=== PATIENT | female | born 1970 | race African-American/Black ===

== ENCOUNTER 2021-03-18 09:19 | Observation (INO) | payer BC ==
[2021-03-18 09:49] LABS: Urine Blood 2+ (Negative); Urine Glucose Negative (Negative); Urine Protein 2+ (Negative); Urine Specific Gravity 1.015 (1.005-1.030)
[2021-03-18] MEDS ORDERED: MAGNES/ALUMIN/SIMET 30ML UCUP ONE (10:00)
[2021-03-18] MEDS ORDERED: LIDOCAINE VISCOUS 2% SOLN 15 ML UDC ONE (10:00)
[2021-03-18 10:06] LABS: Absolute Lymphocytes (CBC) 2.4 K/uL (0.7-4.9); Hematocrit 38.5 % (36.0-45.0); Lymphocytes % 23.4 % (15.3-44.8); MPV 8.8 fL (7.6-11.3); RBC Red Blood Cell Count 4.83 M/uL (3.86-4.86)
[2021-03-18 10:27] LABS: ALT/SGPT 31 U/L (12-78); AST/SGOT 16 U/L (15-37); Albumin 3.4 g/dL (3.4-5.0); Alkaline Phosphatase 76 U/L (45-117); BUN Blood Urea Nitrogen 18 mg/dL (7-18); Bicarbonate 27 mmol/L (21-32); Bilirubin Direct < 0.1 mg/dL (0-0.2); Bilirubin Total 0.2 mg/dL (0.2-1.0); Glucose Level 98 mg/dL (74-106); NT PRO-BNP 87 pg/mL (<125); Potassium 3.1 mmol/L (3.5-5.1); Protein, Total 7.5 g/dL (6.4-8.2); Sodium Level 139 mmol/L (136-145); Troponin (Emerg Dept Use Only) < 0.02 ng/mL (0.0-0.045)
--- NOTE | 2021-03-18 10:44 | RAD REPORT ---
EXAM DESCRIPTION: RAD - Chest Single View - 03/18/2021 10:31 am CLINICAL HISTORY: CHEST PAIN COMPARISON: Chest Single View dated 03/26/2017 FINDINGS: Lines: None. Lungs: No evidence of edema or pneumonia. Pleural: No significant pleural effusions or pneumothorax. Cardiac: The heart size is within normal limits. Bones: No acute fractures. Other: IMPRESSION: No acute cardiopulmonary disease.
--- NOTE | 2021-03-18 11:13 | RAD REPORT ---
EXAM DESCRIPTION: CT - Chest For Pe Angio - 03/18/2021 10:58 am CLINICAL HISTORY: CHEST PAIN COMPARISON: No comparisons FINDINGS: Chest Wall: No suspicious thyroid nodules or pathologic lymphadenopathy. Lungs: No acute abnormality. Pleura: No significant effusions or pneumothorax. Mediastinum/lakeisha: No pathologic lymphadenopathy. Pulmonary arteries/Aorta: No filling defect identified. No aortic aneurysm. Heart: No significant pericardial effusion. Normal heart size. Upper abdomen: No acute abnormality. Bones: No acute abnormality. Multilevel degenerative changes are present in the spine. All CT scans are performed using dose optimization technique as appropriate and may include automated exposure control or mA/KV adjustment according to patient size. IMPRESSION: Negative for pulmonary embolism. No acute findings within the chest.
--- NOTE | 2021-03-18 11:15 | RAD REPORT ---
EXAM DESCRIPTION: US - Abdomen Exam Limited - 03/18/2021 10:14 am CLINICAL HISTORY: PAIN COMPARISON: Abdomen Pelvis W Contrast dated 03/26/2017 FINDINGS: The gallbladder demonstrates no gallstones. No pericholecystic fluid or gallbladder wall t hickening. The common bile duct is normal measuring 3. The liver demonstrates no findings of intrahepatic biliary dilatation. IMPRESSION: Unremarkable examination.
--- NOTE | 2021-03-18 11:40 | ER ---
Nurse's Notes [facility] Name: Jeny Gaitan Age: 51 yrs Sex: Female : 1970 Arrival Date: 03/18/2021 Time: 09:20 Bed 25 Private MD: Diagnosis: Chest pain, unspecified Presentation: 03/18 09:30 Chief complaint: Patient states: upper chest heaviness x 1 week, nausea and throat sv burning this morning. Pt took an ASA last night. Coronavirus screen: Vaccine status: Patient reports receiving the 2nd dose of the covid vaccine. Patient reports receiving the 1st dose of the Covid vaccine. Client denies travel out of the [place] in the last 14 days. Ebola Screen: No symptoms or risks identified at this time. Risk Assessment: Do you want to hurt yourself or someone else? Patient reports no desire to harm self or others. Onset of symptoms was February 2021. 09:30 Method Of Arrival: Wheelchair sv 09:30 Acuity: VETO 3 sv 09:59 Initial Sepsis Screen: Does the patient meet any 2 criteria? No. Patient's initial es2 sepsis screen is negative. Does the patient have a suspected source of infection? No. Patient's initial sepsis screen is negative. Historical: - Allergies: 09:32 No Known Allergies; sv - PMHx: 09:32 Hypertension; sv - PSHx: 09:32 hysterectomy; sv - Immunization history:: Adult Immunizations up to date. - Social history:: Smoking status: Patient denies any tobacco usage or history of. - Family history:: not pertinent. - Hospitalizations: : No recent hospitalization is reported. Screenin:59 Abuse screen: Denies threats or abuse. Denies injuries from another. Nutritional es2 screening: No deficits noted. Tuberculosis screening: No symptoms or risk factors identified. Fall Risk IV access (20 points). Gait- Normal/Bed Rest/Wheelchair (0 pts). Assessment: 09:57 Reassessment: Patient is alert, oriented x 3, equal unlabored respirations, skin es2 warm/dry/pink. Pt in for chest pain and sometimes arm numbness that started last week. General: Appears in no apparent distress. well developed, well nourished, Behavior is calm, cooperative, appropriate for age. Pain: Complains of pain in chest Pain radiates to left arm Pain began 2-3 days ago. Neuro: Level of Consciousness is awake, alert, obeys commands, Oriented to person, place, time, situation, Appropriate for age Gait is steady, Speech is normal. Cardiovascular: Reports chest pain. Respiratory: Airway is patent Respiratory effort is even, unlabored, Respiratory pattern is regular, symmetrical. GI: No signs and/or symptoms were reported involving the gastrointestinal system. : No signs and/or symptoms were reported regarding the genitourinary system. EENT: No signs and/or symptoms were reported regarding the EENT system. Derm: No signs and/or symptoms reported regarding the dermatologic system. Musculoskeletal: No signs and/or symptoms reported regarding the musculoskeletal system. Vital Signs: 09:30 Weight 82.1 kg; Height 5 ft. 4 in. (162.56 cm); Pain 7/10; sv 09:59 BP 148 / 82; Pulse 83; Resp 20; Temp 98.4; Pulse Ox 100% on R/A; es2 11:36 BP 143 / 81; Pulse 69; Resp 17; Pulse Ox 97% on R/A; es2 09:30 Body Mass Index 31.07 (82.10 kg, 162.56 cm) sv ED Course: 09:20 Patient arrived in ED. ds1 09:23 Jw Allen MD is Attending Physician. rn 09:23 Amelia Ramirez, SANDY is Primary Nurse. es2 09:31 Patient has correct armband on for positive identification. Placed in gown. Bed in low mh5 position. Call light in reach. Side rails up X 1. Warm blanket given. Pillow given. general technician on. Pulse ox on. NIBP on. 09:32 Triage completed. sv 09:32 EKG done, by ED staff, reviewed by Jw Allen MD. mh5 09:51 Urine collected: clean catch specimen, clear. mh5 09:56 D-Dimer Sent. es2 09:56 Troponin (emerg Dept Use Only) Sent. es2 09:56 PT-INR Sent. es2 09:56 NT PRO-BNP Sent. es2 09:56 LFT's Sent. es2 09:56 CBC with Diff Sent. es2 09:56 Basic Metabolic Panel Sent. es2 09:57 No provider procedures requiring assistance completed. Inserted saline lock: 22 gauge es2 in right antecubital area, using aseptic technique. Blood collected. Patient maintains SpO2 saturation greater than 95% on room air. 09:59 Arm band placed on. es2 10:14 US Abdomen Limited In Process Unspecified. EDMS 10:30 XRAY Chest (1 view) In Process Unspecified. EDMS 10:59 CT Chest For PE Angio In Process Unspecified. EDMS 11:38 Ramsey Baker MD is Hospitalizing Provider. rn Administered Medications: 09:49 Drug: GI Cocktail without - (Maalox Suspension 30 ml, Lidocaine Liquid 2 % 15 es2 ml) Route: PO; 11:36 Follow up: Response: No adverse reaction es2 11:49 Drug: Aspirin Chewable Tablet 324 mg Route: PO; es2 11:50 Follow up: Response: No adverse reaction es2 Outcome: 11:39 Decision to Hospitalize by Provider. rn 17:05 Patient left the ED. es2 Signatures: Dispatcher [employer] Maryann Calixto RN RN sv Sanford, Demi ds1 Jw Allen MD MD rn Martinez, Maria Amelia Rodriguez RN RN es2
--- NOTE | 2021-03-18 11:40 | EDPHYS ---
Physician Documentation [facility] Name: Jeny Gaitan Age: 51 yrs Sex: Female : 1970 Arrival Date: 03/18/2021 Time: 09:20 Bed 25 Private MD: ED Physician Jw Allen HPI: 03/18 11:33 This 51 yrs old Black Female presents to ER via Wheelchair with complaints of Chest rn Pain. 11:33 The patient or guardian reports chest pain that is located primarily in the substernal rn area. Onset: 1 week(s) ago. The pain radiates to the left arm. Associated signs and symptoms: Pertinent negatives: abdominal pain, headache, lower extremity swelling, lightheadedness, near syncope, shortness of breath, syncope, vomiting. The chest pain is described as aching, burning. Duration: The patient or guardian reports multiple episodes, that are intermittent. Modifying factors: The symptoms are alleviated by nothing. the symptoms are aggravated by nothing. Severity of pain: At its worst the pain was moderate in the emergency department the pain has improved. The patient has not experienced similar symptoms in the past. The patient has not recently seen a physician. Patient reports intermittent chest pain that lasts 20 to 30 minutes, over the last week, radiates to left arm, never had cardiac eval, worse with exertion. Feels achy and burning and travels up to neck. Denies abdominal pain. States feels different from her normal acid reflux. Historical: - Allergies: 09:32 No Known Allergies; sv - PMHx: 09:32 Hypertension; sv - PSHx: 09:32 hysterectomy; sv - Immunization history:: Adult Immunizations up to date. - Social history:: Smoking status: Patient denies any tobacco usage or history of. - Family history:: not pertinent. - Hospitalizations: : No recent hospitalization is reported. ROS: 11:33 Constitutional: Negative for fever, chills, and weight loss, Eyes: Negative for injury, rn pain, redness, and discharge, Neck: Negative for injury, pain, and swelling, Cardiovascular: Negative for palpitations, and edema, Respiratory: Negative for shortness of breath, cough, wheezing, and pleuritic chest pain, Abdomen/GI: Negative for abdominal pain, nausea, vomiting, diarrhea, and constipation, Back: Negative for injury and pain, : Negative for injury, bleeding, discharge, and swelling, MS/Extremity: Negative for injury and deformity, Skin: Negative for injury, rash, and discoloration, Neuro: Negative for headache, weakness, numbness, tingling, and seizure. Exam: 11:33 Constitutional: This is a well developed, well nourished patient who is awake, alert, rn and in no acute distress. Head/Face: Normocephalic, atraumatic. Eyes: Periorbital areas with no swelling, redness, or edema. Cardiovascular: Regular rate and rhythm. No pulse deficits. Respiratory: No increased work of breathing, no retractions or nasal flaring. Abdomen/GI: Soft, non-tender Skin: Warm, dry with normal turgor. Normal color with no rashes, no lesions, and no evidence of cellulitis. MS/ Extremity: Pulses equal, no cyanosis. Neurovascular intact. Full, normal range of motion. Equal circumference. Neuro: Awake and alert, GCS 15, oriented to person, place, time, and situation. Cranial nerves II-XII grossly intact. Motor strength 5/5 in all extremities. Sensory grossly intact. 11:33 ECG was reviewed by the Attending Physician. rn Vital Signs: 09:30 Weight 82.1 kg; Height 5 ft. 4 in. (162.56 cm); Pain 7/10; sv 09:59 BP 148 / 82; Pulse 83; Resp 20; Temp 98.4; Pulse Ox 100% on R/A; es2 11:36 BP 143 / 81; Pulse 69; Resp 17; Pulse Ox 97% on R/A; es2 09:30 Body Mass Index 31.07 (82.10 kg, 162.56 cm) sv MDM: 09:23 Patient medically screened. rn 11:33 Differential diagnosis: acute myocardial infarction, acute pericarditis, anxiety, rn coronary artery disease chest wall pain, costochondritis, esophagitis, gastritis, gastroesophageal reflux disease (GERD), pericarditis, pleurisy, pneumothorax, pulmonary embolus, stable angina. The patient was given aspirin in the Emergency Department. 11:36 HEART Score: History: Moderately Suspicious (1), ECG: Non specific repolarization rn disturbance / LBTB / PM (1), Age: > 45 and < 65 years (1), Risk Factors: 1 or 2 risk factors (1), Troponin: < or = 1 x Normal Limit (0), Total Score = 4. Data reviewed: vital signs, nurses notes, lab test result(s), EKG, radiologic studies, CT scan, plain films, and as a result, I will admit patient. Data interpreted: radiation monitor: rate is 83 beats/min, rhythm is normal sinus rhythm, regular, with no ectopy, Interpretation: normal rate, normal rhythm, Pulse oximetry: on room air is 100 %. Interpretation: normal. Counseling: I had a detailed discussion with the patient and/or guardian regarding: the historical points, exam findings, and any diagnostic results supporting the discharge/admit diagnosis, lab results, radiology results, the need for further work-up and treatment in the hospital. Response to treatment: the patient's symptoms have mildly improved after treatment, and as a result, I will admit patient. Admission orders: after a detailed discussion of the patient's condition and case, the admit orders are written by me. ED course: Mild improvement with GI cocktail but still having pain. Troponin negative. ECG shows nonspecific T wave inversions in the inferior and lateral leads. Will admit for cardiac eval this patient has never had a cardiac stress test or evaluation and no clear etiology of chest pain at this time.. 10 09:33 Order name: Basic Metabolic Panel; Complete Time: 10:49 rn 03/18 09:33 Order name: CBC with Diff; Complete Time: 10:17 rn 03/18 09:33 Order name: LFT's; Complete Time: 10:49 rn 03/18 09:33 Order name: NT PRO-BNP; Complete Time: 10:49 rn 03/18 09:33 Order name: PT-INR; Complete Time: 10:49 rn 03/18 09:33 Order name: Troponin (emerg Dept Use Only); Complete Time: 10:49 rn 03/18 09:33 Order name: D-Dimer; Complete Time: 10:49 rn 03/18 09:48 Order name: Urine Dipstick-Ancillary; Complete Time: 10:17 EDMS 03/18 13:10 Order name: Urinalysis EDMS 03/18 13:44 Order name: Urine Microscopic Only EDMS 03/18 13:57 Order name: COVID-19 : Document "Date of Symptom Onset" if Symptomatic. sv 03/18 14:48 Order name: CORONAVIRUS EDNJ 03/18 15:42 Order name: SARS-COV-2 RT PCR EDMS 03/18 16:21 Order name: Hemoglobin A1c EDNJ 03/18 09:33 Order name: XRAY Chest (1 view); Complete Time: 10:49 rn 03/18 09:33 Order name: EKG; Complete Time: 09:33 rn 03/18 09:33 Order name: Cardiac monitoring; Complete Time: 09:49 rn 03/18 09:33 Order name: EKG - Nurse/Tech; Complete Time: 09:49 rn 03/18 09:33 Order name: IV Saline Lock; Complete Time: 09:56 rn 03/18 09:33 Order name: Labs collected and sent; Complete Time: 09:56 rn 03/18 09:33 Order name: O2 Per Protocol; Complete Time: 09:50 rn 03/18 09:33 Order name: O2 Sat Monitoring; Complete Time: 09:50 rn 03/18 09:33 Order name: US Abdomen Limited; Complete Time: 11:19 rn 03/18 10:18 Order name: CT Chest For PE Angio; Complete Time: 11:19 rn 03/18 16:34 Order name: Troponin I EDNJ 03/18 16:34 Order name: Lipid Profile EDNJ 03/18 16:34 Order name: T4 Free EDNJ 03/18 16:34 Order name: Thyroid Stimulating Hormone EDNJ EC:33 Rate is 76 beats/min. Rhythm is regular. QRS [place] is Normal. [place] interval is normal. QRS rn interval is normal. QT interval is normal. No Q waves. T waves are Inverted in leads II, III, aVF, V3, V4, V5, V6. No ST changes noted. Clinical impression: NSR w/ Non-specific ST/T Changes. Interpreted by me. Reviewed by me. Administered Medications: 09:49 Drug: GI Cocktail without - (Maalox Suspension 30 ml, Lidocaine Liquid 2 % 15 es2 ml) Route: PO; 11:36 Follow up: Response: No adverse reaction es2 11:49 Drug: Aspirin Chewable Tablet 324 mg Route: PO; es2 11:50 Follow up: Response: No adverse reaction es2 Disposition Summary: 03/18/21 11:39 Hospitalization Ordered Hospitalization Status: Observation rn Provider: Baker, Mohammad rn Condition: Stable rn Problem: new rn Symptoms: have improved rn Bed/Room Type: Standard rn Location: Telemetry/MedSurg (observation)(03/18/21 15:54) bd Room Assignment: 231(03/18/21 15:54) bd Diagnosis - Chest pain, unspecified rn Forms: - Medication Reconciliation Form rn - SBAR form rn Signatures: Dispatcher [employer] EDMS Beba Frazier Stephanie RN Jw Max MD MD rn Smith, Elizabeth, RN RN es2 Corrections: (The following items were deleted from the chart) 12:37 11:39 Telemetry/MedSurg (observation) rn bd 12:37 11:39 rn bd 15:54 12:37 [facility] ER HOLD bd bd :54 12:37 ERHOLD- bd bd
[2021-03-18] MEDS ORDERED: LABETALOL 20 MG/4ML SYRINGE IV PRN (11:48)
[2021-03-18] MEDS ORDERED: HYDROCODONE/APAP 5/325 MG TAB PO PRN (11:56)
[2021-03-18] MEDS ORDERED: ONDANSETRON 4 MG/2 ML VIAL IV PRN (12:00)
[2021-03-18] MEDS ORDERED: ACETAMINOPHEN 500 MG TAB PO PRN (12:00)
--- NOTE | 2021-03-18 12:03 | P.HP ---
Certification for Inpatient Patient admitted to: Inpatient With expected LOS: >2 Midnights Patient will require the following post-hospital care: None Practitioner: I am a practitioner with admitting privileges, knowledge of patient current condition, hospital course, and medical plan of care. Services: Services provided to patient in accordance with Admission requirements found in Title 42 Section 412.3 of the Code of Federal Regulations Patient History Date of Service: 03/18/21 Reason for admission: Chest pain History of Present Illness: Patient is a 51-year-old female with a past medical history significant for hypertension who presents with complaint of chest pain that has been ongoing for the past 1 week. Patient reported that chest pain is located in the substernal chest area. Patient indicated that chest pain radiates to her left arm, neck and left shoulder. Patient rated pain as 10/10 in severity and described pain as burning in quality. Patient reports associated signs and symptoms of left arm numbness\tingling, diaphoresis, fatigue, nausea and headache. Patient denies any other signs or symptoms. Symptoms are aggravated or relieved by nothing. Patient decided to present to the hospital due to worsening symptoms Allergies No Known Allergies Allergy (Verified 03/26/17 20:18) Home Medications: Irbesartan 75 mg PO DAILY 03/18/21 hydroCHLOROthiazide [Hydrochlorothiazide] 12.5 mg PO DAILY 03/18/21 - Past Medical/Surgical History Diabetic: No -: Hypertension - Family History Father -: Heart disease, Diabetes Mother -: Hypertension - Social History Smoking Status: Former smoker Alcohol use: No CD- Drugs: No Caffeine use: Yes Place of Residence: Home Review of Systems General: Malaise, As per HPI Eyes: Unremarkable ENT: Unremarkable Respiratory: Unremarkable Cardiovascular: Chest Pain Gastrointestinal: Nausea Genitourinary: Unremarkable Musculoskeletal: Neck Pain, Arm Pain, Back Pain Integumentary: Unremarkable Neurological: Numbness Lymphatics: Unremarkable Physical Examination - Physical Exam General: Alert, In no apparent distress, Oriented x3 HEENT: Atraumatic, PERRLA, Mucous membr. moist/pink, EOMI, Sclerae nonicteric Neck: Supple, 2+ carotid pulse no bruit, No LAD, Without JVD or thyroid abnormality Respiratory: Clear to auscultation bilaterally, Normal air movement Cardiovascular: Regular rate/rhythm, Normal S1 S2 Capillary refill: <2 Seconds Gastrointestinal: Normal bowel sounds, No tenderness Musculoskeletal: No tenderness Integumentary: No rashes Neurological: Normal gait, Normal speech, Normal tone, Normal affect Lymphatics: No axilla or inguinal lymphadenopathy External genitalia: Deferred Rectal: Deferred - Studies Laboratory Data (last 24 hrs) 03/18/21 09:55: PT 11.5, INR 1.00 03/18/21 09:55: WBC 10.30, Hgb 12.8, Hct 38.5, Plt Count 260 03/18/21 09:55: Sodium 139, Potassium 3.1 L, BUN 18, Creatinine 0.97, Glucose 98, Total Bilirubin 0.2, AST 16, ALT 31, Alkaline Phosphatase 76 Assessment and Plan - Plan --Chest pain of unclear etiology. Will trend troponins. Sign Writer Hand consulted. Echocardiogram pending. Telemetry to monitor for any significant arrhythmia. Await further recommendation from drum operator. --Hypertension. Poorly controlled. Continue home medications and labetalol as needed --UTI POA. Patient placed on antibiotics. --Hypokalemia. Replete as needed. --Class I obesity. Likely secondary to excess calories intake. Patient counseled on diet and exercise therapy. --Elevated D-dimer. CTA angiogram PE chest protocol negative for PE. Continue supportive care. --Hyperlipidemia. Patient placed on statin. --DVT prophylaxis with Lovenox subQ I have had discussion about advanced directives with the patient during this hospital admission. Addressed code status and goals of care. Spent more than 30 minutes. Case discussed withpatient and nurse. The following document was completed using voice recognition software. This can produce stereo equipment installer errors that can at times significantly distort words and phrases. Please interpret any aspect of the note that is nonsensical in light of this fact. Discharge Plan: Home Plan to discharge in: 48 Hours - Advance Directives Does patient have a Living Will: No Does patient have a Durable POA for Healthcare: No - Code Status/Comfort Care Code Status Assessed: Yes Code Status: Full Code Physician Review: Patient Assessed, Agree with Above Assessment and Plan Critical Care: No
[2021-03-18 12:14] VITALS: BMI 31.0
[2021-03-18] MEDS ORDERED: ASPIRIN 81 MG CHEWABLE TABLET ONE (12:14)
[2021-03-18 13:05] LABS: Urine Appearance CLEAR (Clear); Urine Bilirubin NEGATIVE (Negative); Urine Blood 3+ (Negative); Urine Color YELLOW (Yellow); Urine Glucose NEGATIVE (Negative); Urine Protein 2+ (Negative); Urine Specific Gravity >=1.030 (1.005-1.030); Urine Urobilinogen 0.2 mg/dL (0.2-1.0)
[2021-03-18 13:10] LABS: Urine Microscopic Reflex ORDER UMIC
[2021-03-18 13:43] LABS: Urine Bacteria <20 /HPF (<20); Urine RBC 20-50 /HPF (NONE SEEN)
[2021-03-18] MEDS ORDERED: INFLUENZA VACCINE (for 6+ mo) 0.5 ML DOSE IMVAC ONE (15:00)
[2021-03-18 16:33] LABS: HDL Cholesterol 51 mg/dL (40-60); LDL Cholesterol, Calculated 142 (<130); Troponin I < 0.02 ng/mL (0.0-0.045)
--- NOTE | 2021-03-18 18:06 | EKG ---
Test Date: 2021-03-18 Test Time: 09:41:05 Urban Design Consultant: DIONE MEASUREMENT RESULTS: Intervals: Rate: 76 NE: 166 QRSD: 76 QT: 388 QTc: 436 Jamul: P: 37 NE: 166 QRS: -4 T: -42 INTERPRETIVE STATEMENTS: Normal sinus rhythm Moderate voltage criteria for LVH, may be normal variant Nonspecific T wave abnormality Abnormal ECG Compared to ECG 03/26/2017 14:22:53 Prolonged QT interval no longer present T-wave abnormality still present Electronically Signed On 03-18-21 18:05:29 CDT by Darwin Ramsay
[2021-03-18] MEDS ORDERED: POTASSIUM 25 MEQ EFFERV TAB PO ONE ×2 (19:00→20:00)
[2021-03-18] MEDS ORDERED: SODIUM CHLORIDE 0.9% 10ML INJ IV PRN (22:27)
[2021-03-18] MEDS ORDERED: CEFTRIAXONE 1 GM/NS 50 ML 1 GM/50 ML BAG IV SCH (23:00)
--- NOTE | 2021-03-18 23:54 | CON ---
Date of Consultation: 03/18/[address] Murguia on 03/18/2021. Reason For Consultation: Chest pain. History Of Present Illness: Ms. Gaitan is a 51-year-old black woman without any significant cardiac h istory. She does have a history of hypertension. She came in with a few days of substernal chest pr essure, left arm numbness, occasionally left neck pain, pain was last hours on and with some nausea, but no vomiting, diaphoresis, or shortness of breath. She denies any PND, orthopnea, palpitations, o r syncope. Her symptoms are not exertional and not related to food, time of the day, or body positio n. She denied any excessive stress lately. Past Medical History: Includes hypertension. Allergies: NONE. Review of Systems: Negative. Social History: Negative. Family History: Noncontributory. Physical Examination: Vital Signs: Stable. She was afebrile. HEENT: Negative. Neck: Supple. No bruit. Chest: Clear to auscultation and percussion. Cardiac: Revealed a regular rhythm and rate. No murmurs, gallops, or rubs. Abdomen: Benign. Extremities: Revealed no clubbing, cyanosis, or edema. Diagnostic Data: D-dimer was elevated at 618. Potassium was 3.1. She has dyslipidemia that is sign ificant. She may have UTI. Chest x-ray was normal. Her EKG showed left ventricular hypertrophy. A bdominal ultrasound was normal. She had a CTA that was negative for pulmonary embolus. Impression And Plan: 1.Hypertension. 2.Obesity. 3.Atypical chest pain. I think she needs to have an echocardiogram and a stress test before she goes home and I will make ar rangements for that for tomorrow. She does have hypokalemia that needs to be addressed. She had wha t seems to be a urinary tract infection. She has significant dyslipidemia and she should be on stati n when she goes home. We will see what her stress test and echo show before making final decisions. TASHA/RINKU Voice ID: [id number] Report ID: [id number]
[2021-03-19] MEDS ORDERED: CEFTRIAXONE 1000 MG/VIAL ONE (01:25)
[2021-03-19] MEDS ORDERED: NA CHLORIDE 0.9% 100 ML ONE (01:25)
[2021-03-19 06:12] LABS: Absolute Lymphocytes (CBC) 2.5 K/uL (0.7-4.9); Basophils % 0.6 % (0-1.3); Hematocrit 35.1 % (36.0-45.0); Lymphocytes % 26.5 % (15.3-44.8); MPV 9.1 fL (7.6-11.3); RBC Red Blood Cell Count 4.34 M/uL (3.86-4.86)
[2021-03-19 06:25] LABS: Magnesium 2.1 mg/dL (1.8-2.4); Phosphorus 3.4 mg/dL (2.5-4.9); Potassium 3.5 mmol/L (3.5-5.1)
[2021-03-19] MEDS ORDERED: REGADENOSON 0.4 MG/5 ML SYR IV ONE (07:25)
--- NOTE | 2021-03-19 08:02 | ECHO ---
HEIGHT: 5 ft 4 in WEIGHT: 181 lb 0 oz DATE OF STUDY: 03/18/[address]: Sandeep Daniel 2-DIMENSIONAL: YES M.MODE: YES DOPPLER: YES COLOR FLOW: YES TDS: NO PORTABLE: NO DEFINITY: NO BUBBLE STUDY: NO DIAGNOSIS: CHEST PAIN CARDIAC HISTORY: CATHERIZATION: NO SURGERY: NO PROSTHETIC VALVE: NO PACEMAKER: NO MEASUREMENTS (cm) DIASTOLIC (NORMALS) SYSTOLIC (NORMALS) IVSd 1.1 (0.6-1.2) LA Diam 2.9 (1.9-4.0) LVEF 66% LVIDd 3.2 (3.5-5.7) LVIDs 2.1 (2.0-3.5) %FS 35% LVPWd 1.1 (0.6-1.2) Ao Diam 2.1 (2.0-3.7) 2 DIMENSIONAL ASSESSMENT: RIGHT ATRIUM: NORMAL LEFT ATRIUM: NORMAL RIGHT VENTRICLE: NORMAL LEFT VENTRICLE: NORMAL TRICUSPID VALVE: NORMAL MITRAL VALVE: NORMAL PULMONIC VALVE: NORMAL AORTIC VALVE: NORMAL PERICARDIAL EFFUSION: NONE AORTIC ROOT: NORMAL LEFT VENTRICULAR WALL MOTION: NORMAL DOPPLER/COLOR FLOW: NORMAL COMMENTS: NORMAL 2D ECHOCARDIOGRAM WITH DOPPLER. NO WALL MOTION ABNORMALITY. NO EFFUSION. TECHNOLOGIST: Chavo NEELY
[2021-03-19] MEDS ORDERED: ENALAPRIL 10 MG TAB PO SCH (09:00)
[2021-03-19] MEDS ORDERED: ASPIRIN 81 MG CHEWABLE TABLET PO SCH (09:00)
[2021-03-19] MEDS ORDERED: ENOXAPARIN 40 MG/0.4 ML SQ SCH (09:00)
[2021-03-19] MEDS ORDERED: IRBESARTAN 150 MG TAB PO SCH (09:00)
[2021-03-19] MEDS ORDERED: PANTOPRAZOLE 40 MG INJ IVP SCH (09:00)
[2021-03-19] MEDS ORDERED: hydroCHLOROthiazide 12.5 MG CAP PO SCH (09:00)
[2021-03-19] MEDS ORDERED: POTASSIUM 25 MEQ EFFERV TAB PO SCH (09:00)
[2021-03-19 09:19] VITALS: BP 121/71; TEMP 97.3
--- NOTE | 2021-03-19 12:27 | RAD REPORT ---
EXAM DESCRIPTION: NM - Rest Stress Cardiac Imaging - 03/19/2021 12:18 pm CLINICAL HISTORY: Chest pain COMPARISON: None. TECHNIQUE: The patient was administered 10.6 mCi of Tc 99m Sestamibi prior to resting SPECT imaging of the heart. The patient was then administered 30.1 mCi of Tc 99m Sestamibi following exercise or ph armacologic stress. Multiplanar SPECT images were reviewed. FINDINGS: The end diastolic volume is 70 ml, the end systolic volume is 27 ml, and the ejection frac tion is 61 %. Physiologic distribution of the radiopharmaceutical through the myocardium is noted. No stress induce d ischemic defect is seen to suggest stress induced ischemia. No fixed defect is seen to suggest hibe rnating myocardium or scarred myocardium. IMPRESSION: No stress induced ischemia or other suspicious findings. Ventricular volumes and ejection fraction normal range.
[2021-03-19 13:59] VITALS: O2SAT 99
--- NOTE | 2021-03-19 14:38 | P.DS ---
Admission Date: 03/18/21 Discharge Date: 03/19/21 Disposition: ROUTINE DISCHARGE Discharge Condition: FAIR Reason for Admission: Chest pain Consultations: Cardiology-Dr. Ramsay - Problems (1) Chest pain Current Visit: Yes Status: Acute (2) Hypertension Current Visit: No Status: Acute (3) UTI (urinary tract infection) Current Visit: Yes Status: Acute (4) Hyperlipidemia Current Visit: Yes Status: Acute Brief History of Present Illness: 51-year-old female with a past medical history significant for hypertension presented with a complaint of chest pain that has been ongoing for the past 1 week. Patient reported that chest pain is located in the substernal chest area. Patient indicated that chest pain radiates to her left arm, neck and left shoulder. She rated pain as 10/10 in severity and described pain as burning in quality. Patient reports associated signs and symptoms of left arm numbness\tingling, diaphoresis, fatigue, nausea and headache. Initial troponin negative. EKG demonstrated LVH and nonspecific T-wave abnormalitie. Patient placed under observation for ACS rule out. Hospital Course: Troponin trended negative. Patient seen in consultation by cardiology-Dr. Ramsay who recommended echocardiogram and stress test. Nuclear stress test came back negative. Echocardiogram shows no wall motion abnormality and normal EF. ACS has been ruled out. Patient noted to have hyperlipidemia. She is placed on aspirin and Lipitor. Her blood pressure was normal with her home antihypertensives. UA suggested UTI. Patient was given a dose of IV Rocephin. Patient is deemed stable for discharge. Vital Signs/Physical Exam: Temp Pulse Resp BP Pulse Ox 97.3 F 73 17 121/71 99 03/19/21 08:00 03/19/21 10:03/19/21 08:00 03/19/21 10:03/19/21 08:00 General: Alert, In no apparent distress, Oriented x3 HEENT: Mucous membr. moist/pink Neck: JVD not distended Respiratory: Clear to auscultation bilaterally, Normal air movement Cardiovascular: No edema, Regular rate/rhythm, Normal S1 S2, No murmurs Gastrointestinal: Soft and benign, Non-distended, No tenderness Musculoskeletal: No swelling Integumentary: No rashes Neurological: Normal strength at 5/5 x4 extr Laboratory Data at Discharge: WBC 9.50 K/uL (4.3-10.9) 03/19/21 05:37 Hgb 11.4 g/dL (12.0-15.0) L 03/19/21 05:37 Hct 35.1 % (36.0-45.0) L 03/19/21 05:37 Plt Count 231 K/uL (152-406) 03/19/21 05:37 PT 11.5 SECONDS (9.5-12.5) 03/18/21 09:55 INR 1.00 03/18/21 09:55 Sodium 141 mmol/L (136-145) 03/19/21 05:37 Potassium 3.5 mmol/L (3.5-5.1) 03/19/21 05:37 BUN 19 mg/dL (7-18) H 03/19/21 05:37 Creatinine 1.01 mg/dL (0.55-1.3) 03/19/21 05:37 Glucose 109 mg/dL (74-106) H 03/19/21 05:37 Phosphorus 3.4 mg/dL (2.5-4.9) 03/19/21 05:37 Magnesium 2.1 mg/dL (1.8-2.4) 03/19/21 05:37 Total Bilirubin 0.2 mg/dL (0.2-1.0) 03/18/21 09:55 AST 16 U/L (15-37) 03/18/21 09:55 ALT 31 U/L (12-78) 03/18/21 09:55 Alkaline Phosphatase 76 U/L (45-117) 03/18/21 09:55 Troponin I < 0.02 ng/mL (0.0-0.045) 03/19/21 05:37 Triglycerides 164 mg/dL (<150) H 03/18/21 15:42 Cholesterol 226 mg/dL (<200) H 03/18/21 15:42 HDL Cholesterol 51 mg/dL (40-60) 03/18/21 15:42 Cholesterol/HDL Ratio 4.43 03/18/21 15:42 Home Medications: Irbesartan 75 mg PO DAILY 03/18/21 hydroCHLOROthiazide [Hydrochlorothiazide] 12.5 mg PO DAILY 03/18/21 Aspirin [Aspirin EC] 81 mg PO DAILY #30 tablet.dr 03/19/21 Atorvastatin Calcium [Lipitor] 40 mg PO BEDTIME #30 tab 03/19/21 Pantoprazole [Protonix Tab] 40 mg PO DAILY #30 tab 03/19/21 New Medications: Aspirin [Aspirin EC] 81 mg PO DAILY #30 tablet. Atorvastatin Calcium [Lipitor] 40 mg PO BEDTIME #30 tab Pantoprazole [Protonix Tab] 40 mg PO DAILY #30 tab Diet: AHA Activity: Ad david Followup: Gaetano Rosenbaum MD [Primary Care Provider] -
[2021-03-19] MEDS ORDERED: INFLUENZA VACCINE (for 6+ mo) 0.5 ML DOSE IMVAC ONE (15:00)
[2021-03-19] MEDS ORDERED: ATORVASTATIN 40 MG TAB PO SCH (21:00)
--- NOTE | 2021-03-20 08:19 | TREADPHA ---
DX: CHEST PAIN Date of Study: 03/19/2021 Ht: 5' 4 " Wt: 181 lb 0 oz Consulting Physician: DORA MEDICATIONS: ASPIRIN, LIPITOR, VASOTEC, LOVENOX, NORCO HISTORY: PATIENT IS A 51 YEAR OLD FEMALE WITH COMPLAINTS OF CHEST PAIN. HISTORY OF NO DRINKING, NO SMOKING, HYPERTENSION PHYSICIAL EXAMINATION: RESTING B.P.: 118/80 RESTING H.R.: 74 RESTING EKG: NORMAL, NON SPECIFIC T WAVE PROTOCOL: PHARMACOLOIGIC EXERCISE TIME: 3:30 B.P. AT PEAK STRESS: 135/78 IMPRESSION: LEXISCAN INJECTED FOLLOWED BY CARDIOLITE INJECTED - SEE NUCLEAR MEDICINE REPORT. NO CHEST PAIN, SUPRAVENTRICULAR TACHYCARDIA, VENTRICULAR TACHYCARDIA, PREMATURE VENTRICULAR COMPLEXES, PREMATURE ARTIAL COMPLEXES.
--- NOTE | 2021-03-21 16:48 | PN ---
Ms. Gaitan was admitted on 03/18/2021 with atypical chest pain. Echocardiogram and Lexiscan were plan david for today, 03/19/2021. Overnight, no chest pain reported. Telemetry remained sinus rhythm. Ech ocardiogram was done today, was normal. Lexiscan was normal without any evidence of ischemia. Her p ain is probably more likely pleuritic or gastroesophageal in nature. She can go home. We will be nida davidson to see her in the office as an outpatient. TASHA/RINKU Voice ID: [id number] Report ID: [id number]
== END 2021-03-19 16:38 | disposition home or self-care (01) ==
LOC: ER 09:19 → ERHOLD 11:52 → 2ND 16:52
PROVIDERS: ADMIT Internal Medicine; ATTEND Internal Medicine
DX: R07.89 Other chest pain (principal); N39.0 Urinary tract infection, site not specified; I10 Essential (primary) hypertension; E78.5 Hyperlipidemia, unspecified; E87.6 Hypokalemia; E66.9 Obesity, unspecified; Z68.31 Body mass index [BMI] 31.0-31.9, adult; Z90.710 Acquired absence of both cervix and uterus; Z20.822 Contact with and (suspected) exposure to COVID-19; Z87.891 Personal history of nicotine dependence; Z82.49 Family history of ischemic heart disease and other diseases of the circulatory system; Z83.3 Family history of diabetes mellitus
CPT/HCPCS: 93005; 93017; 93306; 85025 ×2; 80048 ×2; 36415; 83735; 84100; 85610; 80061; 85379; 80076; 84443; 83036; 84484 ×4; 84439; 83880; 71275; 71045; 90471; 76705; 78452; 99285; U0003; Q9967; Q2035; C9113; J1650; J2785; J0696; A9500; G0378 ×3; 81003; 81015